=== PATIENT | male | born 1980 | race Caucasian/White ===

== ENCOUNTER 2022-11-23 16:34 | Emergency (ER) | payer MEDICAID ==
[~2022-11-23] VITALS: Ht 167.6 cm; Wt 86.4 kg
[2022-11-23 16:52] LABS: COVID AG,FIA SOURCE NASAL SWAB
[2022-11-23 16:53] VITALS: BP 122/63
[2022-11-23 17:13] LABS: INFLUENZA TYPE A NEGATIVE FOR TYPE A (NEGATIVE); INFLUENZA TYPE B NEGATIVE FOR TYPE B (NEGATIVE)
== END 2022-11-23 19:42 | disposition left against medical advice (07) ==
LOC: EMS 16:39
DX: R09.81 Nasal congestion (principal); R05.9 Cough, unspecified; Z53.21 Procedure and treatment not carried out due to patient leaving prior to being seen by health care provider; Z20.822 Contact with and (suspected) exposure to COVID-19
CPT/HCPCS: 87804; 99281; Z7502

== ENCOUNTER 2023-09-03 16:04 | Emergency (ER) | payer MEDICAID ==
[~2023-09-03] VITALS: Ht 167.6 cm; Wt 72.0 kg
[2023-09-03 16:16] VITALS: TEMP 98.3
[2023-09-03 17:10] LABS: BASOPHILS % (AUTO) 0.3 % (0.0-2.0); EOSINOPHILS % (AUTO) 1.1 % (1.0-6.0); HEMATOCRIT 43.3 % (41-53); HEMOGLOBIN 14.6 g/dL (13.5-17.5); LYMPHOCYTES # (AUTO) 4.1 K/uL (1.0-4.8); LYMPHOCYTES % (AUTO) 33.4 % (22.0-44.0); MEAN CORPUSCULAR HEMOGLOBIN 29.5 pg (26.0-34.0); MEAN CORPUSCULAR HGB CONC 33.7 G/dL (31.0-37.0); MEAN CORPUSCULAR VOLUME 88 fL (80-100); MONOCYTES # (AUTO) 0.9 K/uL (0.1-1.0); MONOCYTES % (AUTO) 7.7 % (2.0-9.0); NEUTROPHILS # (AUTO) 7.1 K/uL (1.8-7.7); NEUTROPHILS % (AUTO) 57.5 % (40.0-70.0); PLATELET COUNT (AUTO) 240 K/uL (150-450); RED BLOOD CELL COUNT(AUTO) 4.95 MIL/uL (4.50-5.90); RED CELL DISTRIBUTION WIDTH 13.6 % (11.5-14.5); WHITE BLOOD COUNT (AUTO) 12.3 K/uL (4.5-11.0)
[2023-09-03 17:18] LABS: ANION GAP 9 mmol/L (8-16); CALCIUM, TOTAL 8.9 mg/dL (8.8-10.5); CARBON DIOXIDE 27 mmol/L (22-29); CHLORIDE 104 mmol/L (98-107); CREATININE 0.93 mg/dL (0.60-1.30); GLOMERULAR FILTR. RATE CALC > 60 mL/min (>60); GLUCOSE,RANDOM 205 mg/dL (70-110); POTASSIUM 3.5 mmol/L (3.5-5.1); SODIUM SERUM 140 mmol/L (136-145); UREA NITROGEN, BLOOD 17 mg/dL (7-18)
[2023-09-03 17:25] LABS: ALANINE AMINOTRANSFERASE 127 U/L (12-78); ALBUMIN 4.1 g/dL (3.4-5.0); ALKALINE PHOSPHATASE 119 U/L (46-116); ASPARTATE AMINOTRANSFERASE 56 U/L (15-37); BILIRUBIN,TOTAL 0.5 mg/dL (0.1-1.0); TOTAL PROTEIN, SERUM 7.7 g/dL (6.4-8.2); TROPONIN I-HIGH SENSITIVITY 6 ng/L (<76)
[2023-09-03] MEDS ORDERED: ALBUTEROL SULFATE 2.5 MG/0.5 ML NEB SOLUTION NEB ONE (19:45)
[2023-09-03] MEDS ORDERED: IPRATROPIUM BROMIDE 0.5 MG/2.5 ML NEB SOLUTION NEB ONE (19:45)
[2023-09-03] MEDS ORDERED: PredniSONE 20 MG TABLET PO ONE (19:45)
[2023-09-03 20:16] LABS: COVID AG,FIA SOURCE NASAL SWAB
[2023-09-03 20:23] LABS: B-TYPE NATRIURETIC PEPTIDE < 5 pg/mL (0-100)
[2023-09-03 20:28] LABS: CREATINE KINASE, TOTAL ONLY 341 U/L (39-308)
[2023-09-03 20:32] VITALS: PULSE 77; RESP 18; O2SAT 98
[2023-09-03 20:35] LABS: SARS-COV2 (COVID) ANTIGEN,FIA Negative (Negative)
[2023-09-03 20:36] LABS: INFLUENZA TYPE A NEGATIVE FOR TYPE A (NEGATIVE); INFLUENZA TYPE B NEGATIVE FOR TYPE B (NEGATIVE)
[2023-09-03 20:43] VITALS: PULSE 67; RESP 20; O2SAT 100
[2023-09-03 20:44] LABS: TROPONIN I-HIGH SENSITIVITY 4 ng/L (<76)
[2023-09-03 20:45] LABS: CREATINE KINASE, TOTAL ONLY 310 U/L (39-308)
[2023-09-03] MEDS ORDERED: PRED-554 PO (21:14)
[2023-09-03 21:20] VITALS: BP 121/75; PULSE 93; RESP 18
[2023-09-03] MEDS ORDERED: ALBU18HF12 IH (21:20)
== END 2023-09-03 21:21 | disposition home or self-care (01) ==
LOC: EMS 16:06
DX: J45.909 Unspecified asthma, uncomplicated (principal); Z20.822 Contact with and (suspected) exposure to COVID-19
CPT/HCPCS: 99285; 71045; 87426; 80053; 82550; 83880; 84484; 85025; 87804; 36415; 94640; 93005; J7512; J7613

== ENCOUNTER 2024-02-05 22:25 | Emergency (ER) | payer MEDICAID ==
[~2024-02-05] VITALS: Ht 170.2 cm; Wt 67.3 kg
[~2024-02-05 22:25] MED LIST: ALBU18HF12 IH; PRED-554 PO
[2024-02-05 22:58] VITALS: TEMP 98.1
[2024-02-05 23:19] LABS: APPEARANCE,URINE CLEAR (CLEAR); BILIRUBIN,URINE NEGATIVE (NEGATIVE); COLOR,URINE COLORLESS (YELLOW); GLUCOSE, URINE (UA) >=1000 mg/dL (NEGATIVE); KETONES,URINE =>150 mg/dL (NEGATIVE); LEUKOCYTE ESTERASE ,URINE NEGATIVE (NEGATIVE); NITRATE,URINE NEGATIVE (NEGATIVE); OCCULT BLOOD,URINE TRACE (NEGATIVE); PROTEIN,URINE NEGATIVE (NEGATIVE); SPECIFIC GRAVITIY, URINE 1.038 (1.003-1.030); UROBILINOGEN,URINE <=1.0 mg/dL (<=1.0)
[2024-02-05 23:25] LABS: RBC,URINE None Seen /HPF (0-2)
[2024-02-05 23:26] LABS: BACTERIA,URINE None Seen /HPF (None Seen); SQUAMOUS EPITHELIAL CELL,UR None Seen /LPF (None Seen); WBC,URINE None Seen /HPF (0-5)
[2024-02-05 23:26] LABS: BASOPHILS % (AUTO) 0.4 % (0.0-2.0); LYMPHOCYTES # (AUTO) 1.5 K/uL (1.0-4.8); LYMPHOCYTES % (AUTO) 14.9 % (22.0-44.0); MONOCYTES # (AUTO) 0.5 K/uL (0.1-1.0); WHITE BLOOD COUNT (AUTO) 9.8 K/uL (4.5-11.0)
[2024-02-05 23:29] LABS: EOSINOPHILS % (AUTO) 0.6 % (1.0-6.0); HEMATOCRIT 47.8 % (41-53); HEMOGLOBIN 15.8 g/dL (13.5-17.5); MEAN CORPUSCULAR HEMOGLOBIN 29.2 pg (26.0-34.0); MEAN CORPUSCULAR VOLUME 89 fL (80-100); MONOCYTES % (AUTO) 4.9 % (2.0-9.0); NEUTROPHILS # (AUTO) 7.8 K/uL (1.8-7.7); NEUTROPHILS % (AUTO) 79.2 % (40.0-70.0); PLATELET COUNT (AUTO) 211 K/uL (150-450); RED CELL DISTRIBUTION WIDTH 14.2 % (11.5-14.5)
[2024-02-05 23:43] LABS: ANION GAP 12 mmol/L (8-16); CALCIUM, TOTAL 9.6 mg/dL (8.8-10.5); CARBON DIOXIDE 26 mmol/L (22-29); CHLORIDE 93 mmol/L (98-107); CREATININE 0.99 mg/dL (0.60-1.30); GLOMERULAR FILTR. RATE CALC > 60 mL/min (>60); LIPASE 65 U/L (16-77); POTASSIUM 4.5 mmol/L (3.5-5.1); SODIUM SERUM 131 mmol/L (136-145); TROPONIN I-HIGH SENSITIVITY 4 ng/L (<76); UREA NITROGEN, BLOOD 12 mg/dL (7-18)
[2024-02-05 23:45] LABS: GLUCOSE,RANDOM 555 mg/dL (70-110)
[2024-02-06] MEDS: SODIUM CHLORIDE 0.9% 1,000 ML IV ONE ×2 (00:58→02:24)
[2024-02-06] MEDS: INSULIN REGULAR, HUMAN 100 UNITS/ML IVP ONE ×2 (00:59→02:23)
[2024-02-06 01:21] LABS: GLUCOMETER DEV NAME(LOC) ER.7; GLUCOSE,POINT OF CARE 493 MG/DL (70-110)
[2024-02-06] MEDS: MetFORMIN HCL 500 MG TABLET PO ONE (02:24)
[2024-02-06 02:26] LABS: GLUCOMETER DEV NAME(LOC) ER.7; GLUCOSE,POINT OF CARE 412 MG/DL (70-110)
[2024-02-06 03:01] LABS: GLUCOMETER DEV NAME(LOC) ER.7; GLUCOSE,POINT OF CARE 392 MG/DL (70-110)
[2024-02-06] MEDS ORDERED: METF-1211 PO (04:11)
[2024-02-06 04:39] VITALS: BP 108/68; PULSE 80; RESP 16
== END 2024-02-06 04:42 | disposition home or self-care (01) ==
LOC: EMS 22:26
DX: E11.9 Type 2 diabetes mellitus without complications (principal); J45.909 Unspecified asthma, uncomplicated
CPT/HCPCS: 99285; 71045; 80048; 81001; 82962; 83036; 83690; 84484; 85025; 36415; 93005; 96374; 96361; 96376; J1815; J7030